=== PATIENT | male | born 1975 | race Caucasian/White ===

== ENCOUNTER 2021-07-24 12:43 | Outpatient (CLI) | payer OTHER | END 2021-07-24 12:44 | disposition home or self-care (01) | LOC: CSHRAD 12:43 | PROVIDERS: ATTEND Orthopaedic Surgery Adult Reconstructive Orthopaedic Surgery | DX: M25.551 Pain in right hip (principal); M54.50 Low back pain, unspecified; Z96.7 Presence of other bone and tendon implants | CPT/HCPCS: 72100; 72190 ==